=== PATIENT | female | born 1940 | race Two or more races ===

== ENCOUNTER 2020-01-12 06:59 | Inpatient (IN) | payer MEDICARE, MEDICAID, OTHER ==
[~2020-01-12] VITALS: Ht 157.5 cm; Wt 92.1 kg
--- NOTE | 2020-01-12 07:38 | NUR ---
Pt BIB air transport. Report received stated that pt was found down after about an hour and was alter. Reports that pt was altered and had a fall two days earlier as well. Pt ANOx4 during initial assessment. Transport reported that pt has a UTI and is septic with a lactic of 4.3. Pt denies chest pain but has an elevated troponin of 1.33. NAD, even and unlabored respirations, call light within reach, WCTM.
--- NOTE | 2020-01-12 07:49 | NUR ---
Pt resting in gurney, unlabored and even respirations, call light within reach, NAD, denies additional needs at this time. WCTM.
[2020-01-12 08:37] LABS: ANION GAP 8 mmol/L (5-15); CALCIUM 9.1 mg/dL (8.5-10.1); CHLORIDE 104 mmol/L (98-107); CREATININE 1.25 mg/dL (0.55-1.02)
--- NOTE | 2020-01-12 09:00 | NUR ---
Late Entry: Pt resting in gurney, warm blankets for comfort, on monitor, NAD, denies additional needs, call light within reach, WCTM. waiting on admit bed.
--- NOTE | 2020-01-12 10:00 | NUR ---
Late Entry: pt resting in gurney, eyes closed, even and unlabored respirations, NAD, WCTM.
[2020-01-12] MEDS ORDERED: PLEASE ENTER ALLERGIES MC SCH (10:30)
[2020-01-12] MEDS ORDERED: ONDANSETRON ODT 4 MG PO PRN (10:30)
[2020-01-12] MEDS ORDERED: ONDANSETRON 2MG/ML, 2ML IVPush PRN (10:30)
[2020-01-12] MEDS: SODIUM CHLORIDE 0.9% 1,000 ML IV SCH (10:47)
--- NOTE | 2020-01-12 10:51 | NUR ---
Report given to Kirit COOLEY, pt ready to go, resting in [facility], denies additional needs at this time.
[2020-01-12 10:52] LABS: TROPONIN I 0.691 ng/mL (0.000-0.045)
--- NOTE | 2020-01-12 10:52 | NUR ---
Sergio martin in EDM - 01/12/20 at 1053 by JULIANNA Late Entry: pt resting in gurney, eyes closed, even and unlabored respirations, NAD, WCTM.
[2020-01-12 11:31] VITALS: BP 132/76
[2020-01-12] MEDS ORDERED: CEFTRIAXONE PMX 1GM/50ML 50 ML IV SCH (12:30)
[2020-01-12] MEDS ORDERED: DOXYCYCLINE 100 MG in DEXTROSE 5% 250 ML IV SCH (12:30)
[2020-01-12 12:57] VITALS: BP 118/72
[2020-01-12] MEDS: INSULIN LISPRO 100 UNITS/ML, PEN SQ-INSULIN SCH ×3 (14:26→21:43)
[2020-01-12 15:27] LABS: TROPONIN I 0.671 ng/mL (0.000-0.045)
[2020-01-12] MEDS: PIPERACILLIN/TAZO/PMX 3.375GM 50 ML IV SCH ×2 (16:12→21:42)
[2020-01-12] MEDS: HEPARIN 5,000 UNITS/ML, 1ML SQ SCH ×2 (17:39→23:40)
[2020-01-12] MEDS: LINEZOLID PMX 600MG/300ML 300 ML IV SCH (17:40)
[2020-01-12 20:40] VITALS: BP 127/72
[2020-01-12] MEDS ORDERED: IBUPROFEN 200 MG TABLET PO PRN (21:30)
[2020-01-13 00:14] VITALS: BP 130/70
[2020-01-13] MEDS: PIPERACILLIN/TAZO/PMX 3.375GM 50 ML IV SCH ×4 (02:31→21:15)
[2020-01-13] MEDS: LINEZOLID PMX 600MG/300ML 300 ML IV SCH ×2 (03:11→15:50)
[2020-01-13 05:24] LABS: MEAN CORPUSCULAR HEMOGLOBIN 29.2 pg (27.0-34.8); MEAN CORPUSCULAR HGB CONC 33.6 g/dL (32.4-35.8); MEAN CORPUSCULAR VOLUME 86.9 fL (80-100); MEAN PLATELET VOLUME 8.5 fL (7.4-10.4); PLATELET COUNT 199 x10^3/uL (130-400); RED BLOOD COUNT 3.93 x10^6/uL (3.82-5.3)
[2020-01-13 05:42] LABS: ALANINE AMINOTRANSFERASE 28 U/L (12-78); ALBUMIN 2.2 g/dL (3.4-5.0); ANION GAP 7 mmol/L (5-15); CALCIUM 8.3 mg/dL (8.5-10.1); CHLORIDE 105 mmol/L (98-107); CREATININE 1.19 mg/dL (0.55-1.02)
[2020-01-13 05:44] LABS: ALKALINE PHOSPHATASE 88 U/L (45-117)
[2020-01-13 06:27] LABS: BASOPHILS # (AUTO) 0.01 x10^3/uL (0-0.1); BASOPHILS % (AUTO) 0 % (0-1); EOSINOPHILS # (AUTO) 0.15 x10^3/uL (0-0.4); EOSINOPHILS % (AUTO) 1 % (1-7); LYMPHOCYTES # (AUTO) 0.78 x10^3/uL (1-3.4); LYMPHOCYTES % (AUTO) 5 % (22-44); MD SCAN; MONOCYTES # (AUTO) 0.72 x10^3/uL (0.2-0.8); MONOCYTES % (AUTO) 5 % (2-9); NEUTROPHILS # (AUTO) 12.96 x10^3/uL (1.8-6.8); NEUTROPHILS % (AUTO) 89 % (42-75)
[2020-01-13] MEDS ORDERED: POTASSIUM CHLORIDE 20 MEQ TAB.ER.PRT ONE (06:45)
[2020-01-13] MEDS ORDERED: MAGNESIUM SULFATE PMX 4GM/100M 100 ML ONE (06:45)
[2020-01-13] MEDS ORDERED: MAGNESIUM SULFATE PMX 4GM/100M 100 ML IV ONE (07:00)
[2020-01-13] MEDS ORDERED: POTASSIUM CHLORIDE 20 MEQ TAB.ER.PRT PO ONE (07:00)
[2020-01-13 07:43] LABS: CULTURE INDICATED? YES; MICROSCOPIC INDICATED
[2020-01-13 08:07] VITALS: BP 111/69
[2020-01-13] MEDS: INSULIN LISPRO 100 UNITS/ML, PEN SQ-INSULIN SCH ×4 (09:21→21:16)
[2020-01-13] MEDS: HEPARIN 5,000 UNITS/ML, 1ML SQ SCH (09:21)
[2020-01-13] MEDS ORDERED: ENOXAPARIN 40 MG/0.4 ML SQ SCH (11:00)
[2020-01-13] MEDS: POTASSIUM ACID PHOSPHATE 500 MG TABLET.SOL PO SCH ×3 (12:17→23:44)
[2020-01-13] MEDS: SODIUM CHLORIDE 0.9% 1,000 ML IV SCH ×2 (12:17)
[2020-01-13 14:52] VITALS: BP 129/68
[2020-01-13] MEDS ORDERED: CRAN500T2 PO (17:43)
[2020-01-13] MEDS ORDERED: ATOR10TA9 PO (17:43)
[2020-01-13] MEDS ORDERED: PREG150C44 PO (17:43)
[2020-01-13] MEDS ORDERED: INSU100I28 SC (17:43)
[2020-01-13] MEDS ORDERED: PSEU60TA PO (17:43)
[2020-01-13] MEDS ORDERED: IBAN150T20 PO (17:43)
[2020-01-13] MEDS ORDERED: METF-688 PO (17:43)
[2020-01-13] MEDS ORDERED: LIRA3PEN SC (17:43)
[2020-01-13] MEDS ORDERED: DICL50TA4 PO (17:43)
[2020-01-13] MEDS ORDERED: [UNRECOGNIZED DRUG - CODE] PO (17:43)
[2020-01-13] MEDS ORDERED: ACET325T26 PO (17:43)
[2020-01-13] MEDS ORDERED: LISI30TA4 PO (17:43)
[2020-01-13 18:57] VITALS: BP 128/62
[2020-01-13] MEDS: ENOXAPARIN 30 MG/0.3 ML SQ SCH (21:15)
[2020-01-13] MEDS: INSULIN GLARGINE 100 UNITS/ML, PEN SQ-INSULIN SCH (22:05)
[2020-01-14] MEDS: SODIUM CHLORIDE 0.9% 1,000 ML IV SCH ×2 (01:20→16:56)
[2020-01-14] MEDS: PIPERACILLIN/TAZO/PMX 3.375GM 50 ML IV SCH ×4 (03:11→22:06)
[2020-01-14] MEDS: LINEZOLID PMX 600MG/300ML 300 ML IV SCH (03:15)
[2020-01-14 03:18] VITALS: BP 156/82
[2020-01-14 05:04] LABS: CLOSTRIDIUM DIFFICILE ANTIGEN NEGATIVE; CLOSTRIDIUM DIFFICILE TOXIN NEGATIVE (Negative)
[2020-01-14] MEDS: POTASSIUM ACID PHOSPHATE 500 MG TABLET.SOL PO SCH ×4 (05:27→21:04)
[2020-01-14 06:25] LABS: ALBUMIN 2.1 g/dL (3.4-5.0); ANION GAP 6 mmol/L (5-15); CALCIUM 8.5 mg/dL (8.5-10.1); CHLORIDE 108 mmol/L (98-107)
[2020-01-14 06:28] LABS: ALANINE AMINOTRANSFERASE 26 U/L (12-78); ALKALINE PHOSPHATASE 122 U/L (45-117); CREATININE 0.92 mg/dL (0.55-1.02); TOTAL PROTEIN 6.1 g/dL (6.4-8.2)
[2020-01-14 06:40] LABS: MEAN CORPUSCULAR HEMOGLOBIN 29.2 pg (27.0-34.8); MEAN CORPUSCULAR HGB CONC 33.4 g/dL (32.4-35.8); MEAN CORPUSCULAR VOLUME 87.5 fL (80-100); MEAN PLATELET VOLUME 8.8 fL (7.4-10.4); PLATELET COUNT 203 x10^3/uL (130-400); RED BLOOD COUNT 4.07 x10^6/uL (3.82-5.3); RED CELL DISTRIBUTION WIDTH 13.9 % (9.6-15.2)
[2020-01-14 06:48] VITALS: BP 161/76
[2020-01-14 07:53] LABS: BASOPHILS # (AUTO) 0.01 x10^3/uL (0-0.1); BASOPHILS % (AUTO) 0 % (0-1); EOSINOPHILS % (AUTO) 2 % (1-7); LYMPHOCYTES % (AUTO) 5 % (22-44); MD SCAN; MONOCYTES % (AUTO) 5 % (2-9); NEUTROPHILS # (AUTO) 10.22 x10^3/uL (1.8-6.8); NEUTROPHILS % (AUTO) 88 % (42-75)
[2020-01-14] MEDS: INSULIN LISPRO 100 UNITS/ML, PEN SQ-INSULIN SCH ×4 (08:21→21:05)
[2020-01-14] MEDS: INSULIN GLARGINE 100 UNITS/ML, PEN SQ-INSULIN SCH ×2 (08:21→21:04)
[2020-01-14] MEDS ORDERED: MAGNESIUM SULFATE PMX 2GM/50ML 50 ML IV ONE (11:00)
[2020-01-14] MEDS: LACTOBACILLUS CHEW TABLET PO SCH ×2 (12:06→16:56)
[2020-01-14 13:32] VITALS: BP 183/93
[2020-01-14 18:42] VITALS: BP 186/93
[2020-01-14] MEDS: LISINOPRIL 10 MG TABLET PO SCH (18:43)
[2020-01-14 21:02] VITALS: BP 165/84
[2020-01-14] MEDS: ENOXAPARIN 30 MG/0.3 ML SQ SCH (21:04)
[2020-01-15 00:45] VITALS: BP 164/81
[2020-01-15] MEDS: PIPERACILLIN/TAZO/PMX 3.375GM 50 ML IV SCH ×4 (04:13→21:55)
[2020-01-15] MEDS: POTASSIUM ACID PHOSPHATE 500 MG TABLET.SOL PO SCH ×3 (04:13→20:58)
[2020-01-15 06:03] LABS: BASOPHILS # (AUTO) 0.04 x10^3/uL (0-0.1); BASOPHILS % (AUTO) 1 % (0-1); EOSINOPHILS # (AUTO) 0.12 x10^3/uL (0-0.4); EOSINOPHILS % (AUTO) 2 % (1-7); LYMPHOCYTES # (AUTO) 0.62 x10^3/uL (1-3.4); LYMPHOCYTES % (AUTO) 7 % (22-44); MD NO; MEAN CORPUSCULAR HEMOGLOBIN 29.3 pg (27.0-34.8); MEAN CORPUSCULAR HGB CONC 33.8 g/dL (32.4-35.8); MEAN CORPUSCULAR VOLUME 86.6 fL (80-100); MEAN PLATELET VOLUME 8.7 fL (7.4-10.4); MONOCYTES # (AUTO) 0.47 x10^3/uL (0.2-0.8); MONOCYTES % (AUTO) 6 % (2-9); NEUTROPHILS # (AUTO) 7.17 x10^3/uL (1.8-6.8); NEUTROPHILS % (AUTO) 85 % (42-75); PLATELET COUNT 226 x10^3/uL (130-400); RED BLOOD COUNT 4.18 x10^6/uL (3.82-5.3); RED CELL DISTRIBUTION WIDTH 13.4 % (9.6-15.2)
[2020-01-15 06:07] LABS: ANION GAP 9 mmol/L (5-15); CALCIUM 8.7 mg/dL (8.5-10.1); CHLORIDE 108 mmol/L (98-107); CREATININE 0.66 mg/dL (0.55-1.02)
[2020-01-15] MEDS: SODIUM CHLORIDE 0.9% 1,000 ML IV SCH (07:08)
[2020-01-15] MEDS: LISINOPRIL 10 MG TABLET PO SCH ×2 (08:00→08:15)
[2020-01-15] MEDS: INSULIN GLARGINE 100 UNITS/ML, PEN SQ-INSULIN SCH ×2 (08:00→21:56)
[2020-01-15] MEDS: LACTOBACILLUS CHEW TABLET PO SCH ×3 (08:00→17:38)
[2020-01-15] MEDS: INSULIN LISPRO 100 UNITS/ML, PEN SQ-INSULIN SCH ×4 (08:01→21:56)
[2020-01-15 08:06] VITALS: BP 150/80
[2020-01-15] MEDS ORDERED: MAGNESIUM SULFATE PMX 2GM/50ML 50 ML IV ONE (15:00)
[2020-01-15] MEDS ORDERED: hydrALAzine 20 MG/ML, 1ML IV PRN (15:00)
[2020-01-15] MEDS ORDERED: LOPERAMIDE 2 MG CAPSULE PO PRN (15:00)
[2020-01-15] MEDS ORDERED: LOPERAMIDE 2 MG CAPSULE PO ONE (15:00)
[2020-01-15 15:56] VITALS: BP 147/82
[2020-01-15] MEDS: POTASSIUM CHLORIDE 20 MEQ TAB.ER.PRT PO SCH (17:38)
[2020-01-15 19:59] VITALS: BP 169/79
[2020-01-15] MEDS: ENOXAPARIN 40 MG/0.4 ML SQ SCH (20:58)
[2020-01-15] MEDS: LISINOPRIL 20 MG TABLET PO SCH (20:59)
[2020-01-16 02:21] VITALS: BP 159/78
[2020-01-16] MEDS: POTASSIUM ACID PHOSPHATE 500 MG TABLET.SOL PO SCH ×2 (04:32→08:43)
[2020-01-16] MEDS: PIPERACILLIN/TAZO/PMX 3.375GM 50 ML IV SCH ×4 (04:33→23:28)
[2020-01-16 05:21] LABS: ANION GAP 7 mmol/L (5-15); CALCIUM 8.6 mg/dL (8.5-10.1); CHLORIDE 107 mmol/L (98-107); CREATININE 0.65 mg/dL (0.55-1.02)
[2020-01-16 05:25] LABS: BASOPHILS # (AUTO) 0.02 x10^3/uL (0-0.1); BASOPHILS % (AUTO) 0 % (0-1); EOSINOPHILS % (AUTO) 2 % (1-7); LYMPHOCYTES # (AUTO) 0.71 x10^3/uL (1-3.4); LYMPHOCYTES % (AUTO) 11 % (22-44); MD NO; MEAN CORPUSCULAR HEMOGLOBIN 28.9 pg (27.0-34.8); MEAN CORPUSCULAR HGB CONC 33.1 g/dL (32.4-35.8); MEAN CORPUSCULAR VOLUME 87.4 fL (80-100); MONOCYTES # (AUTO) 0.51 x10^3/uL (0.2-0.8); MONOCYTES % (AUTO) 8 % (2-9); NEUTROPHILS # (AUTO) 5.22 x10^3/uL (1.8-6.8); NEUTROPHILS % (AUTO) 79 % (42-75); PLATELET COUNT 230 x10^3/uL (130-400); RED BLOOD COUNT 4.23 x10^6/uL (3.82-5.3); RED CELL DISTRIBUTION WIDTH 13.4 % (9.6-15.2)
[2020-01-16 08:31] VITALS: BP 175/90
[2020-01-16] MEDS: INSULIN LISPRO 100 UNITS/ML, PEN SQ-INSULIN SCH ×4 (08:42→21:14)
[2020-01-16] MEDS: INSULIN GLARGINE 100 UNITS/ML, PEN SQ-INSULIN SCH ×2 (08:43→21:15)
[2020-01-16] MEDS: POTASSIUM CHLORIDE 20 MEQ TAB.ER.PRT PO SCH ×2 (08:43→11:53)
[2020-01-16] MEDS: LISINOPRIL 20 MG TABLET PO SCH ×2 (08:43→21:13)
[2020-01-16] MEDS: LACTOBACILLUS CHEW TABLET PO SCH ×3 (08:44→17:49)
[2020-01-16] MEDS ORDERED: POTASSIUM PHOSPHATE 44 MEQ in SODIUM CHLORIDE 0.9% 500 ML IV ONE ×2 (12:00→12:16)
[2020-01-16] MEDS ORDERED: POTASSIUM CHLORIDE 40 MEQ in SODIUM CHLORIDE 0.9% 500 ML IV ONE ×2 (12:00→12:15)
[2020-01-16] MEDS: CARVEDILOL 6.25 MG TABLET PO SCH ×2 (12:45→17:49)
[2020-01-16 12:46] VITALS: BP 183/84
[2020-01-16 21:11] VITALS: BP 148/79
[2020-01-16] MEDS: ENOXAPARIN 40 MG/0.4 ML SQ SCH (21:13)
[2020-01-17 02:30] VITALS: BP 166/78
[2020-01-17 05:03] LABS: BASOPHILS # (AUTO) 0.01 x10^3/uL (0-0.1); BASOPHILS % (AUTO) 0 % (0-1); EOSINOPHILS # (AUTO) 0.16 x10^3/uL (0-0.4); EOSINOPHILS % (AUTO) 2 % (1-7); LYMPHOCYTES # (AUTO) 0.87 x10^3/uL (1-3.4); LYMPHOCYTES % (AUTO) 13 % (22-44); MD NO; MEAN CORPUSCULAR HEMOGLOBIN 29.2 pg (27.0-34.8); MEAN CORPUSCULAR HGB CONC 33.6 g/dL (32.4-35.8); MEAN CORPUSCULAR VOLUME 87.2 fL (80-100); MEAN PLATELET VOLUME 7.7 fL (7.4-10.4); MONOCYTES # (AUTO) 0.63 x10^3/uL (0.2-0.8); MONOCYTES % (AUTO) 10 % (2-9); NEUTROPHILS # (AUTO) 5.04 x10^3/uL (1.8-6.8); NEUTROPHILS % (AUTO) 75 % (42-75); PLATELET COUNT 248 x10^3/uL (130-400); RED BLOOD COUNT 4.01 x10^6/uL (3.82-5.3); RED CELL DISTRIBUTION WIDTH 13.9 % (9.6-15.2)
[2020-01-17 05:18] LABS: CHLORIDE 110 mmol/L (98-107)
[2020-01-17 05:24] LABS: ANION GAP 6 mmol/L (5-15); CALCIUM 8.4 mg/dL (8.5-10.1); CREATININE 0.65 mg/dL (0.55-1.02)
[2020-01-17] MEDS: PIPERACILLIN/TAZO/PMX 3.375GM 50 ML IV SCH ×4 (06:08→22:05)
[2020-01-17] MEDS: CARVEDILOL 6.25 MG TABLET PO SCH ×2 (06:10→17:25)
[2020-01-17 06:23] VITALS: BP 145/73
[2020-01-17] MEDS: INSULIN LISPRO 100 UNITS/ML, PEN SQ-INSULIN SCH ×5 (07:00→21:10)
[2020-01-17] MEDS: LISINOPRIL 20 MG TABLET PO SCH ×2 (08:31→20:39)
[2020-01-17] MEDS: LACTOBACILLUS CHEW TABLET PO SCH ×3 (08:31→17:25)
[2020-01-17] MEDS: INSULIN GLARGINE 100 UNITS/ML, PEN SQ-INSULIN SCH ×2 (08:32→21:11)
[2020-01-17] MEDS ORDERED: LIDOCAINE 1%, 10ML ONE (09:16)
[2020-01-17] MEDS ORDERED: MAGNESIUM SULFATE PMX 2GM/50ML 50 ML IV ONE (09:30)
[2020-01-17 11:40] LABS: SYN CELLS COUNTED 7
[2020-01-17 14:46] VITALS: BP 165/77
[2020-01-17 20:34] VITALS: BP 127/69
[2020-01-17] MEDS: ENOXAPARIN 40 MG/0.4 ML SQ SCH (20:39)
[2020-01-17] MEDS: MAGNESIUM CHLORIDE 64 MG TABLET.DR PO SCH (20:39)
[2020-01-18 01:10] VITALS: BP 145/62
[2020-01-18] MEDS ORDERED: ACETAMINOPHEN 325 MG TABLET PO PRN ×2 (03:30→07:30)
[2020-01-18] MEDS ORDERED: ACETAMINOPHEN 325 MG TABLET ONE (03:44)
[2020-01-18] MEDS: PIPERACILLIN/TAZO/PMX 3.375GM 50 ML IV SCH ×3 (03:53→20:59)
[2020-01-18 03:55] VITALS: BP 130/55
[2020-01-18] MEDS: CARVEDILOL 6.25 MG TABLET PO SCH ×2 (04:03→17:03)
[2020-01-18 05:17] LABS: BASOPHILS # (AUTO) 0.02 x10^3/uL (0-0.1); BASOPHILS % (AUTO) 0 % (0-1); EOSINOPHILS # (AUTO) 0.19 x10^3/uL (0-0.4); EOSINOPHILS % (AUTO) 2 % (1-7); LYMPHOCYTES # (AUTO) 1.09 x10^3/uL (1-3.4); LYMPHOCYTES % (AUTO) 13 % (22-44); MD NO; MEAN CORPUSCULAR HGB CONC 33.3 g/dL (32.4-35.8); MEAN CORPUSCULAR VOLUME 87.2 fL (80-100); MEAN PLATELET VOLUME 7.7 fL (7.4-10.4); MONOCYTES # (AUTO) 0.69 x10^3/uL (0.2-0.8); MONOCYTES % (AUTO) 8 % (2-9); NEUTROPHILS % (AUTO) 76 % (42-75); PLATELET COUNT 257 x10^3/uL (130-400); RED BLOOD COUNT 3.86 x10^6/uL (3.82-5.3); RED CELL DISTRIBUTION WIDTH 13.8 % (9.6-15.2)
[2020-01-18 05:21] LABS: ANION GAP 6 mmol/L (5-15); CALCIUM 8.4 mg/dL (8.5-10.1); CHLORIDE 105 mmol/L (98-107)
[2020-01-18 05:24] LABS: CREATININE 0.86 mg/dL (0.55-1.02)
[2020-01-18 06:59] VITALS: BP 129/64
[2020-01-18] MEDS: LACTOBACILLUS CHEW TABLET PO SCH ×3 (08:20→17:03)
[2020-01-18] MEDS: LISINOPRIL 20 MG TABLET PO SCH ×2 (08:20→21:00)
[2020-01-18] MEDS: INSULIN GLARGINE 100 UNITS/ML, PEN SQ-INSULIN SCH ×2 (08:20→21:00)
[2020-01-18] MEDS: INSULIN LISPRO 100 UNITS/ML, PEN SQ-INSULIN SCH ×4 (08:20→21:01)
[2020-01-18] MEDS: PREGABALIN 150 MG CAPSULE PO SCH ×2 (08:21→17:03)
[2020-01-18] MEDS: MAGNESIUM CHLORIDE 64 MG TABLET.DR PO SCH ×3 (08:21→20:59)
[2020-01-18] MEDS ORDERED: MAGNESIUM SULFATE PMX 2GM/50ML 50 ML IV ONE (12:00)
[2020-01-18 13:41] VITALS: BP 155/64
[2020-01-18 18:44] VITALS: BP 108/57
[2020-01-18] MEDS: ENOXAPARIN 40 MG/0.4 ML SQ SCH (20:59)
[2020-01-18 21:00] VITALS: BP 132/64
[2020-01-19] MEDS: PREGABALIN 150 MG CAPSULE PO SCH ×3 (00:01→15:59)
[2020-01-19 00:02] VITALS: BP 115/65
[2020-01-19] MEDS: PIPERACILLIN/TAZO/PMX 3.375GM 50 ML IV SCH ×4 (02:48→20:57)
[2020-01-19] MEDS: CARVEDILOL 6.25 MG TABLET PO SCH ×2 (06:00→17:02)
[2020-01-19 06:16] VITALS: BP 110/55
[2020-01-19 06:23] VITALS: BP 118/65
[2020-01-19] MEDS: INSULIN LISPRO 100 UNITS/ML, PEN SQ-INSULIN SCH ×4 (08:32→20:58)
[2020-01-19] MEDS: LISINOPRIL 20 MG TABLET PO SCH ×2 (08:32→20:57)
[2020-01-19] MEDS: INSULIN GLARGINE 100 UNITS/ML, PEN SQ-INSULIN SCH ×2 (08:32→20:58)
[2020-01-19] MEDS: LACTOBACILLUS CHEW TABLET PO SCH ×3 (08:33→17:02)
[2020-01-19] MEDS: MAGNESIUM CHLORIDE 64 MG TABLET.DR PO SCH ×3 (08:33→20:57)
[2020-01-19 12:00] VITALS: BP 117/52
[2020-01-19 19:01] VITALS: BP 129/61
[2020-01-19] MEDS: ENOXAPARIN 40 MG/0.4 ML SQ SCH (20:57)
[2020-01-20] MEDS: PREGABALIN 150 MG CAPSULE PO SCH ×4 (00:05→23:25)
[2020-01-20 00:17] VITALS: BP 134/76
[2020-01-20] MEDS: PIPERACILLIN/TAZO/PMX 3.375GM 50 ML IV SCH ×4 (03:28→22:35)
[2020-01-20] MEDS: CARVEDILOL 6.25 MG TABLET PO SCH ×2 (05:18→18:26)
[2020-01-20 06:52] VITALS: BP 111/56
[2020-01-20] MEDS: MAGNESIUM CHLORIDE 64 MG TABLET.DR PO SCH ×2 (09:09→21:05)
[2020-01-20] MEDS: LACTOBACILLUS CHEW TABLET PO SCH ×3 (09:09→16:12)
[2020-01-20] MEDS: LISINOPRIL 20 MG TABLET PO SCH ×2 (09:10→21:05)
[2020-01-20] MEDS: INSULIN GLARGINE 100 UNITS/ML, PEN SQ-INSULIN SCH ×2 (09:10→21:06)
[2020-01-20] MEDS: INSULIN LISPRO 100 UNITS/ML, PEN SQ-INSULIN SCH ×4 (09:11→21:06)
[2020-01-20 12:00] VITALS: BP 120/55
[2020-01-20] MEDS ORDERED: AMOX1TAB64 PO (14:55)
[2020-01-20] MEDS ORDERED: LISI-170 PO (14:55)
[2020-01-20] MEDS ORDERED: CARV6.2512 PO (14:55)
[2020-01-20] MEDS ORDERED: ACID1TAB7 PO (14:55)
[2020-01-20] MEDS ORDERED: CEFT2FRO2 IV (14:55)
[2020-01-20] MEDS ORDERED: MAGN70TA2 PO (14:55)
[2020-01-20 20:07] VITALS: BP 175/85
[2020-01-20] MEDS: ENOXAPARIN 40 MG/0.4 ML SQ SCH (21:05)
[2020-01-21 01:15] VITALS: BP 157/69
[2020-01-21] MEDS: CARVEDILOL 6.25 MG TABLET PO SCH (05:07)
[2020-01-21] MEDS: PIPERACILLIN/TAZO/PMX 3.375GM 50 ML IV SCH (05:07)
[2020-01-21] MEDS: INSULIN LISPRO 100 UNITS/ML, PEN SQ-INSULIN SCH (07:00)
[2020-01-21 07:13] VITALS: BP 120/63
[2020-01-21] MEDS: MAGNESIUM CHLORIDE 64 MG TABLET.DR PO SCH (08:02)
[2020-01-21] MEDS: PREGABALIN 150 MG CAPSULE PO SCH (08:02)
[2020-01-21] MEDS: LACTOBACILLUS CHEW TABLET PO SCH (08:02)
[2020-01-21] MEDS: LISINOPRIL 20 MG TABLET PO SCH (08:02)
[2020-01-21] MEDS: INSULIN GLARGINE 100 UNITS/ML, PEN SQ-INSULIN SCH (08:03)
== END 2020-01-21 08:32 | DRG 871 ==
LOC: ED 09:27 → EDIP 10:07 → 5SO 11:19 → 4EST 01-18 09:22
PROVIDERS: ADMIT Internal Medicine; ATTEND Internal Medicine
PROC: 0S9D3ZZ Drainage of Left Knee Joint, Percutaneous Approach (ICD-10-PCS; principal; 2020-01-17)
PROC: 02HV33Z Insertion of Infusion Device into Superior Vena Cava, Percutaneous Approach (ICD-10-PCS; 2020-01-20)
PROC: B5181ZA Fluoroscopy of Superior Vena Cava using Low Osmolar Contrast, Guidance (ICD-10-PCS; 2020-01-20)
PROC: B548ZZA Ultrasonography of Superior Vena Cava, Guidance (ICD-10-PCS; 2020-01-20)
DX: A41.59 Other Gram-negative sepsis (principal); G93.41 Metabolic encephalopathy; N17.0 Acute kidney failure with tubular necrosis; J15.6 Pneumonia due to other Gram-negative bacteria; E87.1 Hypo-osmolality and hyponatremia; I24.8 Other forms of acute ischemic heart disease; M00.9 Pyogenic arthritis, unspecified; N39.0 Urinary tract infection, site not specified; Z88.8 Allergy status to other drugs, medicaments and biological substances; B95.2 Enterococcus as the cause of diseases classified elsewhere; E11.649 Type 2 diabetes mellitus with hypoglycemia without coma; E78.5 Hyperlipidemia, unspecified; E83.39 Other disorders of phosphorus metabolism; E83.42 Hypomagnesemia; E87.6 Hypokalemia; F41.1 Generalized anxiety disorder; G89.29 Other chronic pain; I11.0 Hypertensive heart disease with heart failure; M19.90 Unspecified osteoarthritis, unspecified site; W18.39XA Other fall on same level, initial encounter; Y93.89 Activity, other specified; Y92.89 Other specified places as the place of occurrence of the external cause; Y99.8 Other external cause status; Z79.4 Long term (current) use of insulin; Z87.891 Personal history of nicotine dependence; M25.462 Effusion, left knee
CPT/HCPCS: 20611; 36415; 36573; 71045; 80048; 80053; 81001; 82040; 82962; 83036; 83605; 83735; 83880; 84100; 84145; 84484; 85025; 85810; 87040; 87070; 87075; 87077; 87086; 87102; 87186; 87205; 87324; 88112; 88305; 89050; 89060; 93005; 93306; 99285; G0378; J0696; J1644; J1650; J2020; J2543; J3480; J7060; C1751; J1815; J3475; J7030; J7040